=== PATIENT | male | born 1940 | race Caucasian/White ===

== ENCOUNTER 2017-09-25 00:35 | Day surgery (SDC) | payer MEDICARE ==
[~2017-09-25] VITALS: Ht 172.7 cm; Wt 91.2 kg
[~2017-09-25 00:35] MED LIST: AMLO-99 PO; APIX5TAB PO; ASPI-1471 PO; CARV25TA78 PO; CYCL10TA29 PO; HYDR-385 PO; HYDR-4309 PO; HYDR12.561 PO; HYDR25TA66 PO; INSU100V24 SQ; LANI SUBQ; LOR5/325 PO; METF-410 PO; METF-420 PO; NITR0.4T3 SL; OMEG500C7 PO; ROSU10TA13 PO; SODI650T7 PO; VALS320T4; [UNRECOGNIZED DRUG - OTHER]
[2017-09-25] MEDS ORDERED: PROPOFOL EMUL(*) 10MG/ML 20 ML 40 ML ONE (07:48)
[2017-09-25] MEDS ORDERED: PROPOFOL EMUL(*) 10MG/ML 20 ML 0 ML ONE (07:48)
[2017-09-25 10:28] VITALS: BP 170/112
[2017-09-25] MEDS ORDERED: NORMOSOL R SOLN(*) 1000 ML BAG 1,000 ML IV PRN (11:30)
[2017-09-25] MEDS ORDERED: LIDOCAINE/SOD BICARB 8.4% SYR ID ONE (11:30)
[2017-09-25] MEDS ORDERED: MIDAZOLAM 2 MG/2 ML VIAL IVP ONE (11:30)
[2017-09-25 12:45] VITALS: BP 107/66
[2017-09-25 13:00] VITALS: BP 107/71
[2017-09-25 13:15] VITALS: BP 104/72
[2017-09-25 13:40] VITALS: BP 114/72
[2017-09-25 13:42] VITALS: BP 117/82
== END 2017-09-25 13:53 | disposition home or self-care (01) ==
LOC: OR 00:35
PROVIDERS: ATTEND Family Medicine
DX: Z12.11 Encounter for screening for malignant neoplasm of colon (principal); K57.30 Diverticulosis of large intestine without perforation or abscess without bleeding; E11.9 Type 2 diabetes mellitus without complications
CPT/HCPCS: 00812; 36416; 82948; G0121; J2704

== ENCOUNTER 2017-10-27 09:00 | Outpatient (RCR) | payer MEDICARE ==
[2017-07-30 10:36] VITALS: BP 134/70
[2017-07-30 10:37] VITALS: BP 118/77
--- NOTE | 2017-07-30 11:15 | CARDIAC REHAB PLAN OF CARE ---
Physician: Benji KOCH Patient is being seen: Alfredo Woods Medical Diagnosis: Pacemaker Date of Initial Evaluation: July 30, 2017 SHORT TERM GOALS Short Term Goals Due Date: 08/30/17 Short Term Goals: 76 year old male, phase II patient comes back to cardiac rehab after having a pacemaker placed in 2016. Patients past cardiac history includes a CABG in 1993, [place] with two stents placed in 2013, and the pacemaker placed two months ago after falling a few times related a low rate and poor cardiac output. The phase II program will require the patient to attend cardiac rehab three times a week to reach a goal of 150 minutes each week of a moderate level of exercise (3.0-6.0 METs), and include weight resistance exercise at least twice a week. Patient will also adjust diet to follow a diabetic and heart friendly diet plan. Increased monitored exercise along with dietary adjustment will improve cardiac and overall health and also help reduce patients weight. Current weight is 205 pounds and the maximum healthy BMI weight is 164 pounds. Short Term Goals Met: Short Term Goals Not Met Due To: ASSISTED GOALS Director Enterprise Data Architecture Goal Due Date: 09/30/17 Director Enterprise Data Architecture Goals: pouch maker goals for this patient are to maintain consistency of exercise and healthy eating to provide positive results of the 36 visit phase II program. Patient will gradually increase duration and intensity of exercise. Skilled Nursing Goals Met: Skilled Nursing Goals Not Met Due To: PATIENT'S GOALS Patient Goals Due Date: 08/30/17 Patient Goals: Patient goals are to gain muscle tone, get in better shape, and lose weight. Patient Goals Met: Patient Goals Not Met Due To: Cardiac Rehabilitation Plan of Care Comment: Cardiac rehab staff will monitor, record, and evaluate vitals, ECG, and exercise results to provide the best plan of care for the patient during the 36 visit phase II program. CR staff will educate and motivate the patient during visits for rehab. CHRISTEN
[2017-08-06 13:21] VITALS: BP 112/78
[2017-08-06 13:22] VITALS: BP 120/78
[2017-08-08 18:43] VITALS: BP 132/84
[2017-08-08 18:44] VITALS: BP 120/74
[2017-08-13 13:39] VITALS: BP 132/88
[2017-08-13 13:40] VITALS: BP 142/80
[2017-08-15 13:11] VITALS: BP 138/88
[2017-08-15 13:12] VITALS: BP 140/78
[2017-08-18 13:35] VITALS: BP 136/82
[2017-08-18 13:36] VITALS: BP 128/84
[2017-08-20 12:45] VITALS: BP 112/72
[2017-08-20 12:46] VITALS: BP 116/70
[2017-08-22 18:07] VITALS: BP 158/74
[2017-08-22 18:08] VITALS: BP 128/80
[2017-08-25 13:25] VITALS: BP 140/84
[2017-08-25 13:27] VITALS: BP 122/74
[2017-08-27 13:46] VITALS: BP_SYST 130; BP_SYST 142; BP_DIAS 82; BP_DIAS 84
--- NOTE | 2017-08-29 11:25 | CARDIAC REHAB PLAN OF CARE ---
Physician: Benji KOCH Patient is being seen: Alfredo Woods Medical Diagnosis: Pacemaker Date of Initial Evaluation: 07/30/17 SHORT TERM GOALS Short Term Goals Due Date: 09/29/17 Short Term Goals: 76 year old male, phase II patient comes back to cardiac rehab after having a pacemaker placed in 2016. Patients past cardiac history includes a CABG in 1993, [place] with two stents placed in 2013, and the pacemaker placed two months ago after falling a few times related a low rate and poor cardiac output. The phase II program will require the patient to attend cardiac rehab three times a week to reach a goal of 150 minutes each week of a moderate level of exercise (3.0-6.0 METs), and include weight resistance exercise at least twice a week. Patient will also adjust diet to follow a diabetic and heart friendly diet plan. Increased monitored exercise along with dietary adjustment will improve cardiac and overall health and also help reduce patients weight. Current weight is 205 pounds and the maximum healthy BMI weight is 164 pounds. Short Term Goals Met: Patient has increased duration and intensity of exercise with 11 visits to cardiac rehab. During exercise SPO2 levels are maintained in the 90's and the gas mask assembler shows a paced rhythm with rates up to 111. Short Term Goals Not Met Due To: ADJUNCT PSYCHOLOGY PROFESSOR GOALS Family Support Specialist Goal Due Date: 10/27/17 Family Support Specialist Goals: retirement goals for patient are to remain consistent with exercise and achieve 150 minutes each week of a moderate level of cardio exercise along with weight resistence exercise at least twice a week. Patient will also remain consistent with heart healthy meals. Mcfp Goals Met: Mcfp Goals Not Met Due To: PATIENT'S GOALS Patient Goals Due Date: 09/29/17 Patient Goals: Patient goals remain the same in increasing endurance and strength, improving cardiac and overall health to remain active. Patient Goals Met: Patient is consistent with visits to cardiac rehab and remains motivated to exercise and improve health. Patient Goals Not Met Due To: Cardiac Rehabilitation Plan of Care Comment: Cardiac rehab staff will continue to monitor, record, and evaluate vitals, ECG, and exercise results to provide the best plan of care for the patient throughout the 36 visit phase II program. CR staff will motivate and educate the patient during visits for rehab. CHRISTEN
[2017-08-29 13:03] VITALS: BP 140/80
[2017-08-29 13:04] VITALS: BP 124/72
[2017-09-01 13:08] VITALS: BP 158/94
[2017-09-03 13:00] VITALS: BP 144/91
[2017-09-03 13:01] VITALS: BP 148/86
[2017-09-08 13:26] VITALS: BP 138/80
[2017-09-08 13:29] VITALS: BP 142/82
[2017-09-10 17:46] VITALS: BP 132/76
[2017-09-10 17:47] VITALS: BP 132/82
[2017-09-12 13:01] VITALS: BP_SYST 128; BP_SYST 132; BP_DIAS 78; BP_DIAS 82
[2017-09-15 13:17] VITALS: BP_SYST 120; BP_SYST 132; BP_DIAS 78; BP_DIAS 82
[2017-09-19 17:43] VITALS: BP 122/72
[2017-09-19 17:44] VITALS: BP 132/78
[2017-09-22 13:45] VITALS: BP 120/76
[2017-09-22 13:46] VITALS: BP 112/74
[2017-09-24 13:12] VITALS: BP 108/60
[2017-09-24 13:13] VITALS: BP 112/70
[2017-09-29 13:23] VITALS: BP_SYST 128; BP_SYST 136; BP_DIAS 78; BP_DIAS 86
[2017-10-01 13:11] VITALS: BP 128/74
[2017-10-01 13:12] VITALS: BP 114/76
--- NOTE | 2017-10-02 15:38 | CARDIAC REHAB PLAN OF CARE ---
Physician: Benji KOCH Patient is being seen: Alfredo Woods Medical Diagnosis: PM Date of Initial Evaluation: 07/30/2017 SHORT TERM GOALS Short Term Goals Due Date: 10/30/17 Short Term Goals: 76 year old male, phase II patient comes back to cardiac rehab after having a pacemaker placed in 2016. Patients past cardiac history includes a CABG in 1993, [place] with two stents placed in 2013, and the pacemaker placed two months ago after falling a few times related a low rate and poor cardiac output. The phase II program will require the patient to attend cardiac rehab three times a week to reach a goal of 150 minutes each week of a moderate level of exercise (3.0-6.0 METs), and include weight resistance exercise at least twice a week. Patient will also adjust diet to follow a diabetic and heart friendly diet plan. Increased monitored exercise along with dietary adjustment will improve cardiac and overall health and also help reduce patients weight. Current weight is 205 pounds and the maximum healthy BMI weight is 164 pounds. Short Term Goals Met: Patient tolerates up to 60 minutes of a moderate level of cardio exercise after 22 visits at cardiac rehab. Patient also includes weight resistance exercise. During exercise SPO2 levels are maintained in the 90's on room air and the deburr operator shows a paced rhythm with rates up to 112. Short Term Goals Not Met Due To: All goals are being met with the exeception of weight loss. PRODUCT MANAGER FINANCIAL SERVICES GOALS Sales Counselor Goal Due Date: 11/30/17 Residential Goals: alf goals are to maintain that consistency of exercise as well as healthy meals. Sales Counselor Goals Met: Patient has made steady improvement in duration and intensity of exercise. Residential Goals Not Met Due To: PATIENT'S GOALS Patient Goals Due Date: 10/30/17 Patient Goals: Patient goals remain to improve health with consistent exercise and improved diet. Patient Goals Met: Patient remains motivated by exercise results. Patient Goals Not Met Due To: Cardiac Rehabilitation Plan of Care Comment: Cardiac rehab staff will continue to monitor, record, and evaluate vitals, ECG, and exercise results to provide the best plan of care throughout the 36 visit phase II program. CR staff will educate and motivate the patient during visits for rehab. CHRISTEN
[2017-10-03 18:29] VITALS: BP 124/80
[2017-10-03 18:30] VITALS: BP 122/84
[2017-10-06 13:30] VITALS: BP 150/72
[2017-10-06 13:31] VITALS: BP 156/78
[2017-10-08 13:02] VITALS: BP 110/78
[2017-10-08 13:03] VITALS: BP 118/80
[2017-10-10 13:18] VITALS: BP 138/78
[2017-10-10 13:19] VITALS: BP 124/74
[2017-10-13 13:18] VITALS: BP_SYST 136; BP_SYST 148; BP_DIAS 88; BP_DIAS 92
[2017-10-15 08:47] VITALS: BP 138/80
[2017-10-15 08:48] VITALS: BP 136/84
[2017-10-17 13:18] VITALS: BP 134/78
[2017-10-17 13:19] VITALS: BP 128/82
[2017-10-20 13:25] VITALS: BP 132/80
[2017-10-20 13:26] VITALS: BP 110/80
[2017-10-22 16:58] VITALS: BP_SYST 110; BP_SYST 118; BP_DIAS 64; BP_DIAS 72
[2017-10-27 13:13] VITALS: BP_SYST 132; BP_SYST 146; BP_DIAS 82; BP_DIAS 86
== END 2017-10-28 ==
LOC: CARD 09:00
PROVIDERS: ATTEND Family Medicine
DX: I25.2 Old myocardial infarction (principal); Z96.89 Presence of other specified functional implants; Z95.0 Presence of cardiac pacemaker; I10 Essential (primary) hypertension
CPT/HCPCS: 93798

== ENCOUNTER 2017-11-12 08:00 | Outpatient (RCR) | payer MEDICARE ==
[2017-10-29 13:09] VITALS: BP 140/80
[2017-10-29 13:10] VITALS: BP 128/70
[2017-10-31 13:28] VITALS: BP 142/76
[2017-10-31 13:29] VITALS: BP 138/72
[2017-11-07 13:26] VITALS: BP 124/78
[2017-11-07 13:27] VITALS: BP 122/80
[2017-11-12 16:43] VITALS: BP_SYST 118; BP_SYST 128; BP_DIAS 74; BP_DIAS 78
== END 2017-11-12 18:00 | disposition home or self-care (01) ==
LOC: CARD 08:00
PROVIDERS: ATTEND Family Medicine
DX: I25.2 Old myocardial infarction (principal); Z96.89 Presence of other specified functional implants; Z95.0 Presence of cardiac pacemaker; I10 Essential (primary) hypertension
CPT/HCPCS: 93798

== ENCOUNTER → 2018-02-03 | Outpatient (CLI) | payer MEDICARE ==
[~2018-02-03] MED LIST changes: -METF-410 PO; +METF-411 PO; -METF-420 PO; +METF-421 PO
--- NOTE | 2018-02-03 09:18 | RADIOLOGY IMAGING REPORT ---
FACILITY: [facility] [place] PATIENT NAME: Aleksandr Briseno : 1940 MR: [id number] V: [id number] EXAM DATE: ORDERING PHYSICIAN: KAYLEN RIBEIRO TECHNOLOGIST: Location: Patient: Aleksandr Briseno : 1940 Visit/Account:[id number] Date of Sevice: 02/03/2018 Exam type: KNEE 3 VIEW RIGHT History: Right knee pain no known injury Comparison: None. Findings: Three views of the right knee reveal no evidence of acute fracture dislocation. There appears to be a small amount of chondrocalcinosis in the medial lateral compartments. No significant narrowing of all three compartments. No lytic or blastic bone lesions are seen IMPRESSION: Mild chondrocalcinosis in the medial lateral compartments of the right knee Report Dictated By: Marianne De La Rosa MD at 02/03/2018 9:13 AM Report E-Signed By: Marianne De La Rosa MD at 02/03/2018 9:14 AM WSN:[email or web address]
== END ==
LOC: RAD 08:45
PROVIDERS: ATTEND Family Medicine
DX: M11.261 Other chondrocalcinosis, right knee (principal)

== ENCOUNTER 2018-04-10 08:15 | Outpatient (RCR) | payer MEDICARE ==
--- NOTE | 2018-02-09 10:27 | PT INITIAL EVALUATION ---
MEDICAL DIAGNOSIS: Knee Pain TREATMENT DIAGNOSIS: Right Knee Arthritis, Generalized Weakness, Abnormality of Gait DATE OF ONSET: 02/09/18 SUBJECTIVE: Aleksandr Briseno (Ron) is a 77 year-old male presenting to physical therapy following prolonged onset of R knee pain and weakness of the R LE. Pt reported that it started following the placement of his pacemaker through his R LE in April 2017. Pt reports that post surgery the muscles never really seemed to come back. Pt underwent cardiac rehabilitation and performs frequent walking which over time causes R hip, ankle and knee pain. Pt reports that he recently had an x-ray of the knee showing arthritis in the joint. Pt reports that he was having pain in the knee and into the lateral quad, but the pain has since went away with the initiation of taking over the counter Glucosamine. Pain at it's worst would wake him up at night rated at 7-8/10 when sleeping with hip and knee adduction. Ryan also reports pain with prolonged standing in the lateral hip. Pt additionally has a history of ankle fracture resulting in a plate on his medial R ankle which will bother him if his knee is in a poor position. Pt denies any back pain at this time. REHAB PROBLEM LIST: Increased Pain Impaired Bed Mobility Decreased Strength Impaired Transfers Decreased Endurance Decreased Balance Decreased Function Decreased ADL's Decreased Mobility Decreased Gait PREVIOUS MEDICAL HISTORY: Type 2 DM, Pacemaker, See EMR OCCUPATION: Retired OBJECTIVE: Strength: LE MMT: Hip: Flexion: L 4-/5, R 3+/5, Ext: L 4/5, R 4-/5, Abd: B 4/5, Add: L 4+/5, R 4-/5. Knee: ext: L 4/5, r 3+/5, Flex: B 4/5. Ankle: DF: B 3+/5, PF: L 4-/5, R 4/5 Sensation: Pt has decreased sensation on his R 1st digit and has absent sensation on his L 1st digit in response to light touch. Mobility: Pt able to perform 10 sit<>stands from lowest plinth height without use of B UE. Gait: Gait significant for L>R foot drop following heel strike. Additionally pt has decreased foot clearance B with occasional R knee hyperextension with loading. Balance: 4 Stage Balance Test: Tandem: L fwd 29 sec, R fwd 30 sec, SLS: L 4 sec , R 5 sec. Other Objective Findings: FOTO Knee: ASSESSMENT: "Ryan" shows signs and symptoms consistent with generalized weakness of the LE R>L secondary to joint degeneration and surgical intervention resulting in R knee pain. Physical therapy is indicated to address the above listed deficits for increased functional mobility for performance of ADL's. Short Term Goals In 2 weeks pt will increase B LE Strength as tested by MMT to >4-/5 for improved function with ADL's. In 4 weeks pt will increase B LE Strength as tested by MMT to >4/5 for improved function with ADL's. In 4 weeks pt will improve 4 stage balance score to >15 seconds SLS B for improved function and stability with ambulation and ADL's. Patient's Goals Increase strength of R LE for functional ambulation and mobility with ADL's. PLAN: Patient to be seen for Manual Therapy/STM/MET Strengthening/condition Ice/Heat Range of Motion Spinal Stabilization Ultrasound Stretching Iontophoresis Neuromuscular Re-ed Closed Chain Program Electrical Stim Posture/Body mechanics Gait Trg/Balance Trg Biofeedback Home Exercise Program Mech./Manual Traction Therapeutic Activities Pelvic Floor 2x/Week for 4 Weeks If you have any questions, comments, or concerns about this report or plan, please contact me at . Thank you, Subha Knott, PT, DPT, CLT CHRISTEN
--- NOTE | 2018-03-11 15:56 | PT PLAN OF CARE ---
Physician: Blayne Leblanc MD Patient is being seen: 3x/Week Therapist: Subha Knott, PT, DPT, CLT Medical Diagnosis: Knee Pain Treatment Diagnosis: Right Knee Arthritis, Generalized Weakness, Abnormality of Gait Date of Onset: 02/09/18 Date of Initial Evaluation: 02/09/18 Date patient was last seen: 03/11/18 Number of treatments: 10 Number of cancellations/No shows: 0 INTERVENTIONS: Manual Therapy/STM/MET Strengthening/condition Ice/Heat Range of Motion Spinal Stabilization Ultrasound Stretching Iontophoresis Neuromuscular Re-ed Closed Chain Program Electrical Stim Posture/Body mechanics Gait Trg/Balance Trg Biofeedback Home Exercise Program Mech./Manual Traction Therapeutic Activities Pelvic Floor GOALS: In 2 weeks pt will increase B LE Strength as tested by MMT to >4-/5 for improved function with ADL's. In 4 weeks pt will increase B LE Strength as tested by MMT to >4/5 for improved function with ADL's. In 4 weeks pt will improve 4 stage balance score to >15 seconds SLS B for improved function and stability with ambulation and ADL's. PATIENT'S GOAL: Increase strength of R LE for functional ambulation and mobility with ADL's. Status of Patient's Goals: In Progress Patient Compliance: Good Prognosis: Good Reasons for continuing therapy: Aleksandr Quigley" shows excellent progress towards functional strength goals. Pt shows improved quad activation B with decreased unilateral deficit. Pt shows increased functional ambulation and is frequently walking to PT sessions. PT strength for ambulating up and down stairs is improving with decreased knee pain overall. Further PT is indicated to improve progress towards functional goals and further improve knee strength, neuromotor activation and alignment with ADL's. OBJECTIVE: Strength: LE MMT: Hip: Flexion: L 4/5, R 4-/5, Ext: B 4/5, , Abd: B 4/5, Add: L 4+/5, R 4/5. Knee: ext: B 4/5, Flex: B 4/5. Ankle: DF: B 3+/5, PF: B 4/5 Sensation: Pt has decreased sensation on his R 1st digit and has absent sensation on his L 1st digit in response to light touch. Mobility: Pt able to perform 10 sit<>stands from lowest plinth height without use of B UE. Gait: Gait significant for L>R foot drop following heel strike. Additionally pt has decreased foot clearance B with occasional R knee hyperextension with loading. Balance: 4 Stage Balance Test: Tandem: B 30 sec, SLS: L 3 sec, R 9 sec. Other Objective Findings: FOTO Knee: 38/50 If you have any questions or concerns, please feel free to contact me at . Thank you, Subha Knott, PT, DPT, CLT MTDD
[~2018-04-10 08:15] MED LIST changes: +AMLO-113 PO; -AMLO-99 PO; -METF-411 PO; -METF-421 PO; +METF-450 PO; +METF-452 PO; -ROSU10TA13 PO; +ROSU10TA5 PO; -VALS320T4; +VALS320T5
--- NOTE | 2018-04-10 10:33 | PT PLAN OF CARE ---
Physician: Blayne Leblanc MD Patient is being seen: 3x/Week Therapist: Subha Knott, PT, DPT, CLT Medical Diagnosis: Knee Pain Treatment Diagnosis: Right Knee Arthritis, Generalized Weakness, Abnormality of Gait Date of Onset: 02/09/18 Date of Initial Evaluation: 02/09/18 Date patient was last seen: 04/10/18 Number of treatments: 21 Number of cancellations/No shows: 1 INTERVENTIONS: Manual Therapy/STM/MET Strengthening/condition Ice/Heat Range of Motion Spinal Stabilization Ultrasound Stretching Iontophoresis Neuromuscular Re-ed Closed Chain Program Electrical Stim Posture/Body mechanics Gait Trg/Balance Trg Biofeedback Home Exercise Program Mech./Manual Traction Therapeutic Activities Pelvic Floor GOALS: In 2 weeks pt will increase B LE Strength as tested by MMT to >4-/5 for improved function with ADL's. MET In 4 weeks pt will increase B LE Strength as tested by MMT to >4/5 for improved function with ADL's. MET In 4 weeks pt will improve 4 stage balance score to >15 seconds SLS B for improved function and stability with ambulation and ADL's. Discontinued PATIENT'S GOAL: Increase strength of R LE for functional ambulation and mobility with ADL's. Status of Patient's Goals: 2/3 MET Patient Compliance: Good Prognosis: Good Reasons for discharge from therapy: Aleksandr Quigley" is to discharge from physical therapy at this time following completion of 2/3 functional goals. At the time of discharge Ryan showed significant increase in LE strength B specifically in the R quadriceps. Ryan shows improved stability with ambulation with decreased foot drop, decreased lateral sway, and improved confidence with recreational ambulation outdoors and on on uneven surfaces. At the time of discharge Ryan is compliant with his HEP with independent commitment to maintaining strength gains. Upon discharge pt is to follow up with further PT per pt preference to improve further gains in balance and stability for ADL's. OBJECTIVE: Strength: LE MMT: Hip: Flexion: L 5/5, R 5-/5, Ext: B 5/5, , Abd/Add: B 5/5. Knee: flex: B 4+/5, ext: L 5/5, R 5-/5. Ankle: DF: B 4/5, PF: B 4/5 Sensation: Pt has decreased sensation on his R 1st digit and has absent sensation on his L 1st digit in response to light touch. Mobility: Pt able to perform 10 sit<>stands from lowest plinth height without use of B UE. Balance: 4 Stage Balance Test: Tandem: B 30 sec, SLS: L 3 sec, R 9 sec. Other Objective Findings: FOTO Knee: 41/50 If you have any questions or concerns, please feel free to contact me at [phone]. Thank you, Subha Knott, PT, DPT, CLT MTDD
== END 2018-04-10 18:00 | disposition home or self-care (01) ==
LOC: PT 08:15
PROVIDERS: ATTEND Family Medicine
DX: M17.11 Unilateral primary osteoarthritis, right knee (principal); R26.89 Other abnormalities of gait and mobility; E11.9 Type 2 diabetes mellitus without complications; Z79.4 Long term (current) use of insulin; I25.10 Atherosclerotic heart disease of native coronary artery without angina pectoris; E78.00 Pure hypercholesterolemia, unspecified; I48.91 Unspecified atrial fibrillation; R53.1 Weakness; Z95.0 Presence of cardiac pacemaker
CPT/HCPCS: 97162